=== PATIENT | male | born 1950 | race Caucasian/White ===

== ENCOUNTER 2019-02-16 17:59 | Inpatient (IN) | payer MEDICARE, MEDICAID ==
[~2019-02-16] VITALS: Ht 165.1 cm; Wt 68.2 kg
[2019-02-16] MEDS ORDERED: [UNRECOGNIZED DRUG - REMARK] PO (18:12)
--- NOTE | 2019-02-16 18:46 | NUR ---
Patient is resting on gurney with family@bedside, pending MD evaluation
--- NOTE | 2019-02-16 19:05 | NUR ---
HAND OFF AND SBAR RECEIVED FROM OUTGOING DAY SHIFT RN MD AT BEDSIDE FOR HX AND PHYSICAL
[2019-02-16] MEDS ORDERED: ONDANSETRON 4 MG/2 ML VIAL IV ONE (19:15)
[2019-02-16] MEDS ORDERED: IV NORMAL SALINE 1000 ML BAG IV ONE (19:15)
--- NOTE | 2019-02-16 19:20 | NUR ---
TELEMETRY NURSE AT BEDSIDE PT ABLE TO TOLERATE IVF INSERTION TO R AC G20 PT NAD, KEPT WARM DRY AND COMFORTABLE SIDERAILS UPX2 , BE AT LOWEST POSITION MONITORED ACCORDINGLY
[2019-02-16] MEDS ORDERED: ONDANSETRON 4 MG/2 ML VIAL ONE (19:21)
[2019-02-16 19:23] LABS: BASOPHILS % (AUTO) 0.4 % (0.0-2.0); EOSINOPHILS # (AUTO) 0.2 K/uL (0.0-0.7); EOSINOPHILS % (AUTO) 1.7 % (0.0-7.0); HEMATOCRIT 46.2 % (36.7-47.1); HEMOGLOBIN 15.6 g/dL (12.5-16.3); LYMPHOCYTES # (AUTO) 1.1 K/uL (20.0-40.0); LYMPHOCYTES % (AUTO) 11.1 % (20.5-51.5); MEAN CORPUSCULAR HEMOGLOBIN 29.4 uug (23.8-33.4); MEAN CORPUSCULAR HGB CONC 34 g/dL (32.5-36.3); MEAN CORPUSCULAR VOLUME 86.7 fL (73.0-96.2); MONOCYTES # (AUTO) 0.5 K/uL (2.0-10.0); MONOCYTES % (AUTO) 5.5 % (0.0-11.0); NEUTROPHILS # (AUTO) 8.1 K/uL (1.8-8.9); NEUTROPHILS % (AUTO) 81.3 % (38.5-71.5); PLATELET COUNT (AUTO) 181 K/uL (152-348); RED BLOOD CELL COUNT(AUTO) 5.32 MIL/uL (4.06-5.63)
[2019-02-16 19:33] LABS: CREATININE 0.9 mg/dL (0.6-1.3); POTASSIUM 5.1 mmol/L (3.5-5.1)
[2019-02-16 19:44] LABS: BILIRUBIN,DIRECT 0.2 mg/dL (0.0-0.2); BILIRUBIN,TOTAL 0.5 mg/dL (0.2-1.0); TOTAL PROTEIN, SERUM 8.7 g/dL (6.4-8.2)
[2019-02-16] MEDS ORDERED: CLOPIDOGREL 75 MG TABLET PO ONE (20:45)
[2019-02-16] MEDS ORDERED: CLOPIDOGREL 75 MG TABLET ONE (21:07)
[2019-02-16] MEDS ORDERED: Z GUARD REMEDY PASTE 57 GM TUBE TOP PRN (22:00)
[2019-02-16] MEDS ORDERED: MAGNESIUM HYDROXIDE 30 ML LIQUID UDC PO PRN (22:00)
[2019-02-16] MEDS ORDERED: ENOXAPARIN SODIUM 40 MG/0.4 ML DISP.SYRIN SQ SCH (22:00)
[2019-02-16] MEDS ORDERED: ONDANSETRON 4 MG/2 ML VIAL IV PRN (22:00)
[2019-02-16] MEDS ORDERED: DEXTROSE 50% 50 ML DISP.SYRIN IV PRN (22:00)
[2019-02-16] MEDS ORDERED: HYDROCODONE/APAP 5-325MG TABLET PO PRN (22:00)
[2019-02-16] MEDS ORDERED: INSULIN REGULAR, HUMAN 300 UNIT/3 ML VIAL SQ PRN (22:00)
[2019-02-16] MEDS ORDERED: ACETAMINOPHEN 325 MG TABLET PO PRN (22:00)
--- NOTE | 2019-02-16 22:03 | NUR ---
HAND OFF AND SBAR GIVEN TO MARY KIRAN PT WILL ADMITTED TO TELE RM [address] HUYNH DX VERTIGO/DIZZINESS ALL BELONGINGS W/ PT SIGNED BELONGING LIST
[2019-02-16 22:30] VITALS: BP 120/59
--- NOTE | 2019-02-16 22:35 | NUR ---
PT TRANSPORTED VIA GURNEY TO [facility] RM 314 SIDERAILSX2 UP, BED AT LOWEST POSITION
--- NOTE | 2019-02-16 22:40 | NUR ---
RECEIVED PT FROM ER VIA GURNEY. PT SHOWS NO SIGNS OF ACUTE DISTRESS. DX: INTRACTABLE VOMITING. TELE UNDER THE CARE OF DR. NETO PETERSON. IV INTACT. ADMISSION AND CARE PLAN INITIATED. NURSING HOME ASSESSMENT DONE. BELONGING LIST DONE. DAUGHTER AND SON AT BEDSIDE. SAFETY AND COMFORT PROVIDED. WILL CONTINUE TO MONITOR.
[2019-02-16] MEDS: IV NS 1000 ML 1,000 ML IV PRN (22:59)
--- NOTE | 2019-02-16 23:41 | NUR ---
ATIVAN 1 MG ORDERED ONE TIME BY DR. NETO PÉREZ. PT REQUESTED FOR ATIVAN FOR SLEEP. PT TOLERATED IT WELL. WILL CONTINUE TO MONITOR. .
[2019-02-16] MEDS ORDERED: LORAZEPAM 1 MG TABLET PO ONE (23:45)
[2019-02-17 00:30] VITALS: BP 118/63
[2019-02-17 04:15] VITALS: BP_SYST 118; BP_SYST 121; BP_SYST 125; BP_DIAS 60; BP_DIAS 61; BP_DIAS 62
[2019-02-17 04:25] VITALS: BP 125/61
--- NOTE | 2019-02-17 06:21 | NUR ---
PT SLEPT THROUGHOUT THE SHIFT . PT SHOWS NO SIGNS OF ACUTE DISTRESS. IV INTACT. PRESCRIBED MEDICATION GIVEN AND PT TOLERATED IT WELL. PT COOPERATIVE WITH CARE. SAFETY AND COMFORT PROVIDED. WILL ENDORSE TO INCOMING NURSE FOR CONTINUITY OF CARE.
[2019-02-17 06:25] LABS: BASOPHILS # (AUTO) 0.1 K/uL (0.0-8.0); BASOPHILS % (AUTO) 0.8 % (0.0-2.0); EOSINOPHILS # (AUTO) 0.2 K/uL (0.0-0.7); EOSINOPHILS % (AUTO) 3.5 % (0.0-7.0); HEMATOCRIT 39.1 % (36.7-47.1); HEMOGLOBIN 13.5 g/dL (12.5-16.3); LYMPHOCYTES # (AUTO) 1.9 K/uL (20.0-40.0); LYMPHOCYTES % (AUTO) 27.2 % (20.5-51.5); MEAN CORPUSCULAR HEMOGLOBIN 29.9 uug (23.8-33.4); MEAN CORPUSCULAR HGB CONC 34 g/dL (32.5-36.3); MEAN CORPUSCULAR VOLUME 86.8 fL (73.0-96.2); MONOCYTES # (AUTO) 0.5 K/uL (2.0-10.0); NEUTROPHILS # (AUTO) 4.3 K/uL (1.8-8.9); NEUTROPHILS % (AUTO) 61.5 % (38.5-71.5); PLATELET COUNT (AUTO) 147 K/uL (152-348); RED BLOOD CELL COUNT(AUTO) 4.51 MIL/uL (4.06-5.63)
[2019-02-17 06:54] LABS: THYROID STIMULATING HORMONE 1.341 mIU/mL (0.358-3.740)
[2019-02-17] MEDS: BLOOD SUGAR DIAGNOSTIC 1 EACH STRIP VI SCH ×2 (07:01→11:43)
[2019-02-17 07:10] LABS: CREATININE 0.8 mg/dL (0.6-1.3); PHOSPHOROUS 3.4 mg/dL (2.5-4.9); POTASSIUM 4.9 mmol/L (3.5-5.1)
--- NOTE | 2019-02-17 08:00 | NUR ---
AWAKE ALERT AND ORIENTED X3 NO SS OF PAIN OR DISTRESS, DENIES VOMITING. CONTINUE WITH IVF ORDERED.SR ON MONITOR
[2019-02-17] MEDS ORDERED: PANTOPRAZOLE SODIUM 40 MG VIAL IV SCH (09:00)
[2019-02-17 11:16] VITALS: BP 103/43
[2019-02-17] MEDS: IV NS 1000 ML 1,000 ML IV PRN (11:45)
--- NOTE | 2019-02-17 12:00 | NUR ---
SEEN BY DR CUEVAS WITH DC ORDER, SPOKE WITH PATIENT AND INSTRUCTED TO FOLLOW UP[ WITH PCP
[2019-02-17] MEDS ORDERED: PNEUMOCOCCAL 23-VAL P-SAC VAC 0.5 ML VIAL IM ONE (14:00)
[2019-02-17] MEDS ORDERED: INFLUENZA VACCINE 2019-2020 0.5 ML DISP.SYRIN IM ONE (14:00)
--- NOTE | 2019-02-17 14:36 | NUR ---
discharged home stable accompanied by daughter with instruction
== END 2019-02-17 14:41 | disposition home or self-care (01) | DRG 74 ==
LOC: ER 17:59 → EDBD 17:59 → TELE3 22:04
DX: G90.8 Other disorders of autonomic nervous system (principal); E11.9 Type 2 diabetes mellitus without complications; R42 Dizziness and giddiness; R11.2 Nausea with vomiting, unspecified; F17.210 Nicotine dependence, cigarettes, uncomplicated; I70.0 Atherosclerosis of aorta; J44.9 Chronic obstructive pulmonary disease, unspecified
CPT/HCPCS: 36415; 70030-TC; 70450; 71045; 83735; 84100; 84443; 85025; 85730; 90686; 90732; 93005; 93307; 93880; A4663; C9113; G0378; J1650; J1815; J2405; J7030